=== PATIENT | female | born 1965 | race Caucasian/White ===

== ENCOUNTER 2018-05-28 18:56 | Emergency (ER) | payer BC ==
--- NOTE | 2018-05-28 20:13 | XRAY Report ---
Reason: Rolled ankle outward, increased px when standing Procedure Date: 05/28/2018 Accession Number: [id number] / [id number] Procedure: XR - Ankle 3 View RT CPT Code: FULL RESULT: EXAM: RIGHT ANKLE RADIOGRAPHY EXAM DATE: 05/28/2018 08:00 PM. CLINICAL HISTORY: Rolled ankle outward, increased px when standing. COMPARISON: None. TECHNIQUE: 3 views. FINDINGS: Bones: Tiny avulsion fragment inferior to the lateral malleolus. Joints: Normal. No effusion. No subluxations. The ankle mortise is normally aligned. Soft Tissues: Lateral greater than medial soft tissue swelling. IMPRESSION: Tiny ligamentous avulsion fracture fragment inferior to the lateral malleolus. RADIA
[2018-05-28 21:13] VITALS: BP 150/76
--- NOTE | 2018-05-28 22:17 | ED Physician Documentation ---
PD HPI LOWER EXT INJURY - Stated complaint Stated Complaint: ANKLE INJURY - Chief complaint Chief Complaint: Trauma Ext - History obtained from History obtained from: Patient - History of Present Illness PD HPI LOW EXT INJURY LOCATION: Right, Ankle Type of injury: Twist Where injury occurred: Other (store) Timing - onset: How many hours ago (several) Timing - duration: Hours Timing - details: Abrupt onset Pain level max: 5 Pain level now: 0 Improved by: Rest Worsened by: Moving Associated symptoms: No: Weakness, Numbness, Tingling, Swelling Similar symptoms before: Has not had sx before Recently seen: Not recently seen - Additional information Additional information: 53-year-old female with no past medical or surgical history here complaining of right ankle pain after accidentally twisting it because she was not paying attention when she was busy doing something. Review of Systems Ten Systems: 10 systems reviewed and negative Musculoskeletal: reports: Extremity pain. denies: Back pain, Extremity swelling, Pain with weight bearing Neurologic: denies: Focal weakness PD PAST MEDICAL HISTORY - Past Medical History Past Medical History: Yes Neuro: Migraines - Past Surgical History Past Surgical History: Yes HEENT: Tonsil/Adenoidectomy - Present Medications Home Medications: Ambulatory Orders Medication Instructions Recorded Confirmed Progesterone,Micronized 05/28/18 [Progesterone] - Allergies Allergies/Adverse Reactions: Allergies Allergy/AdvReac Type Severity Reaction Status Date / Time sulfamethoxazole Allergy Hives Verified 05/28/18 19:06 [From Bactrim] trimethoprim [From Bactrim] Allergy Hives Verified 05/28/18 19:06 - Social History Does the pt smoke?: No Smoking Status: Never smoker Does the pt drink ETOH?: Yes ETOH Use: Wine Does the pt have substance abuse?: Yes Substance Use and Type: Marijuana - Immunizations Immunizations are current?: Yes - POLST Patient has POLST: No PD ED PE NORMAL - Vitals Vital signs reviewed: Yes - General General: Alert and oriented X 3, No acute distress, Well developed/nourished - HEENT HEENT: Moist mucous membranes - Neck Neck: Supple, no meningeal sign, No bony TTP - Cardiac Cardiac: RRR, Strong equal pulses - Respiratory Respiratory: No respiratory distress - Back Back: No spinal TTP - Derm Derm: Warm and dry - Extremities Extremities: No deformity, No tenderness to palpate, Normal ROM s pain, No edema, No calf tenderness / cord - Neuro Neuro: Alert and oriented X 3, No motor deficit, No sensory deficit - Psych Psych: Normal mood, Normal affect Results - Vitals Vitals: Vital Signs - 24 hr 05/28/18 05/28/18 19:00 21:08 Temperature 36.5 C Heart Rate 71 81 Respiratory 16 16 Rate Blood Pressure 133/99 H 150/76 H O2 Saturation 97 99 Oxygen O2 Source Room air PD MEDICAL DECISION MAKING - ED course Complexity details: re-evaluated patient (1030Evaluated right posterior splint with stirrup: Patient denies any pain. Patient able to move her toes. Right foot capillary refill less than 2 seconds. Sensation intact. Splint properly in place. Crutches at the bedside for patient to use.), considered differential (Sprain, strain, dislocation, fracture), d/w patient (Patient informed of test results and agreed to splint and crutches.) Departure - Departure Disposition: 01 Home, Self Care Clinical Impression: Ankle injury Qualifiers: Encounter type: initial encounter Laterality: right Qualified Code(s): S99.911A - Unspecified injury of right ankle, initial encounter Condition: Stable Instructions: ED Fx Ankle Lateral Malleolus, ED Splint Care Fiberglass Comments: Follow-up with your primary doctor for referral to an orthopedic doctor. Nonweightbearing. Use your crutches. Elevate your right leg. OTC Tylenol or Motrin for pain. Keep the splint on until cleared by the orthopedic doctor.
== END 2018-05-28 22:42 | disposition home or self-care (01) ==
LOC: ED 18:56
DX: S99.911A Unspecified injury of right ankle, initial encounter (principal); X50.1XXA Overexertion from prolonged static or awkward postures, initial encounter; Y92.512 Supermarket, store or market as the place of occurrence of the external cause
CPT/HCPCS: 99283

== ENCOUNTER 2019-07-30 07:39 | Outpatient (CLI) | payer BC ==
[2019-07-30 10:23] LABS: BASOPHILS # (AUTO) 0.1 10^3/uL (0.0-0.1); BASOPHILS % (AUTO) 1.3 %; EOSINOPHILS # (AUTO) 0.1 10^3/uL (0.0-0.7); EOSINOPHILS % (AUTO) 1.6 %; HGB - HEMOGLOBIN 13.7 g/dL (12.0-16.0); LYMPHOCYTES # (AUTO) 2.2 10^3/uL (1.5-3.5); LYMPHOCYTES % (AUTO) 40.1 %; MEAN CORPUSCULAR HEMOGLOBIN 31.8 pg (27.0-31.0); MEAN CORPUSCULAR HGB CONC 32.2 g/dL (32.0-36.0); MEAN CORPUSCULAR VOLUME 98.6 fL (81.0-99.0); MEAN PLATELET VOLUME 9.8 fL (7.9-10.8); MONOCYTES # (AUTO) 0.6 10^3/uL (0.0-1.0); MONOCYTES % (AUTO) 11.7 %; NEUTROPHILS # (AUTO) 2.5 10^3/uL (1.5-6.6); NEUTROPHILS % (AUTO) 45.1 %; PLT - PLATELET COUNT 256 10^3/uL (130-450); RED BLOOD COUNT 4.31 10^6/uL (4.20-5.40); RED CELL DISTRIBUTION WIDTH 12.4 % (12.0-15.0); WHITE BLOOD COUNT 5.5 x10^3/uL (4.8-10.8)
[2019-07-30 10:32] LABS: ALBUMIN 4.2 g/dL (3.2-5.5); ALBUMIN/GLOBULIN RATIO 1.4 (1.0-2.2); ALKALINE PHOSPHATASE 55 IU/L (42-121); ALT ALANINE AMINOTRANSFERASE 31 IU/L (10-60); AST ASPARTATE AMINOTRANSFERASE 27 IU/L (10-42); BILIRUBIN,TOTAL 0.9 mg/dL (0.2-1.0); BUN - BLOOD UREA NITROGEN 11 mg/dL (6-20); CALCIUM 8.6 mg/dL (8.5-10.3); CARBON DIOXIDE - CO2 26 mmol/L (21-32); CHLORIDE 103 mmol/L (101-111); CHOL/HDL RATIO 2.5 (<4.4); CHOLESTEROL 242 mg/dL; CREATININE 0.6 mg/dL (0.4-1.0); GFR - MDRD 104 (>89); GLUCOSE 89 mg/dL (70-100); HDL CHOLESTEROL 95 mg/dL; LDL CHOLESTEROL,CALCULATED 134 mg/dL; LDL/HDL RATIO 1.4 (<4.4); SODIUM 137 mmol/L (135-145); TOTAL PROTEIN 7.1 g/dL (6.7-8.2); VLDL CHOLESTEROL 13 mg/dL
[2019-07-30 10:44] LABS: THYROID STIMULATING HORMONE 2.85 uIU/mL (0.34-5.60)
[2019-07-30 10:45] LABS: FREE T4 (FREE THYROXINE) 0.83 ng/dL (0.58-1.64)
[2019-07-30 10:47] LABS: CRP HIGH SENSITIVITY < 0.5 mg/L
[2019-07-30 10:49] LABS: TOTAL T3 0.94 ng/mL (0.87-1.78)
[2019-07-30 10:50] LABS: FERRITIN 83.5 ng/mL (11.0-306.8)
[2019-07-31 09:58] LABS: HOMOCYSTEINE 6.6 umol/L (<10.4)
== END 2019-07-30 07:40 | disposition home or self-care (01) ==
LOC: LAB.S 07:39
PROVIDERS: ATTEND Naturopath
DX: Z00.01 Encounter for general adult medical examination with abnormal findings (principal); R53.83 Other fatigue; E55.9 Vitamin D deficiency, unspecified; R00.2 Palpitations
CPT/HCPCS: 36415; 80053; 80061; 82306; 82626; 82728; 83090; 83721; 84439; 84443; 84480; 84481; 84482; 85025; 86141

== ENCOUNTER 2021-08-08 13:51 | Outpatient (CLI) | payer BC ==
--- NOTE | 2021-08-08 14:54 | XRAY Report ---
PROCEDURE: Finger(s) BILAT INDICATIONS: BILATERAL THUMB PAIN TECHNIQUE: AP hand, 4 views of the bilateral first finger(s) acquired. COMPARISON: None FINDINGS: Bones: Well-corticated jugular bony fragment adjacent to dorsal aspect of left first interphalangeal joint is seen suggestive of old healed avulsion injury. No acute fracture or dislocation. Mild osteoa rthritic changes are noted in bilateral first CMC joints, MCP joints and interphalangeal joints. No s uspicious bony lesions. Soft tissues: No suspicious soft tissue calcifications. 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 No acute fracture or dislocation. Suggestion of old avulsion injury involving dorsal aspect of left first interphalangeal joint. Reviewed by: Roel Hernandez MD on 08/08/2021 2:53 PM PST Approved by: Roel Hernandez MD on 08/08/2021 2:53 PM PST Station ID: [id number]
== END 2021-08-08 13:52 | disposition home or self-care (01) ==
LOC: DI.S 13:51
PROVIDERS: ATTEND Naturopath
DX: M18.0 Bilateral primary osteoarthritis of first carpometacarpal joints (principal)

== ENCOUNTER 2022-06-18 20:33 | Emergency (ER) | payer BC ==
[2022-06-18 20:42] VITALS: BP 163/107
--- NOTE | 2022-06-18 22:59 | ED Physician Documentation ---
PD HPI UPPER EXT INJURY - Stated complaint Stated Complaint: DOG BITE/BOTH HANDS - Chief complaint Chief Complaint: Laceration - History obtained from History obtained from: Patient - History of Present Illness Location: Both Type of injury: Laceration Where injury occurred: Home Timing - onset: Enter time (20:00), Today Timing - details: Abrupt onset Associated symptoms: No: Weakness, Numbness - Additonal information Additional information: patient broke up a fight between her dog and cat tonight at approximately 8 PM, sustaining multiple lacerations to BUE in the process. Cannot recall last received tetanus booster. Patient is right hand dominant. Review of Systems Skin: reports: Abrasion (s), Bite / sting Musculoskeletal: reports: Extremity pain Neurologic: denies: Focal weakness, Numbness PD PAST MEDICAL HISTORY - Past Medical History Neuro: Migraines - Past Surgical History Past Surgical History: Yes HEENT: Tonsil/Adenoidectomy - Present Medications Home Medications: Ambulatory Orders Medication Instructions Recorded Confirmed Progesterone, Micronized 100 mg PO DAILY 05/28/18 [Progesterone] Amox/Clav 875/125 [Augmentin 1 tablet PO Q12H 5 Days #10 tablet 06/18/22 875/125 Tab] - Allergies Allergies/Adverse Reactions: Allergies Allergy/AdvReac Type Severity Reaction Status Date / Time sulfamethoxazole Allergy Hives Verified 06/18/22 20:42 [From Bactrim] trimethoprim [From Bactrim] Allergy Hives Verified 06/18/22 20:42 - Social History Does the pt smoke?: No Smoking Status: Never smoker Does the pt drink ETOH?: Yes Does the pt have substance abuse?: Yes - Immunizations Immunizations are current?: Yes - POLST Patient has POLST: No PD ED PE NORMAL - Vitals Vital signs reviewed: Yes - Extremities Extremities: Other (multiple superficial abrasions to both hands, wrists. superficial puncture wound to left second finger over PIP joint, extensor surface with mild echymosis but FROM ) - Neuro Neuro: No motor deficit, No sensory deficit Results - Vitals Vitals: Oxygen O2 Source Room air PD MEDICAL DECISION MAKING - ED course Complexity details: considered differential, d/w patient ED course: multiple superficial abrasions to BUE and solitary superficial puncture wound to left second finger. No injury that would benefit from repair (suture, glue, tape). Patient does know tetanus status and thus given dTAP booster in ED, and given Augmentin in ED with 5 day rx for Augmentin as wound prophylaxis Departure - Departure Disposition: 01 Home, Self Care Clinical Impression: Dog bite of multiple sites of hand and fingers Condition: Good Instructions: ED Bite Dog Prescriptions: Amox/Clav 875/125 [Augmentin 875/125 Tab] 1 tablet PO Q12H 5 Days #10 tablet Comments: There are no areas of injury that need repair (stitches). There are a few areas that appear to be superficial punctures, which are at risk of infection from an animal bite, particularly over the hands, and thus an antibiotic (augmentin) has been given in the ER and a prescription has been electronically submitted to [facility] in [place]. Clean the wounds twice per day with soap and water, then apply an antibiotic ointment such as bacitracin to the wounds Discharge Date/Time: 06/18/22 23:35
[2022-06-18] MEDS ORDERED: AMOX/CLAV 875 MG/125 MG TABLET PO STA (23:14)
[2022-06-18] MEDS ORDERED: TETANUS/DIPHTHERIA/PERTUSSIS 0.5 ML SYRINGE IM ONE (23:14)
== END 2022-06-18 23:35 | disposition home or self-care (01) ==
LOC: ED 20:33
DX: S61.412A Laceration without foreign body of left hand, initial encounter (principal); S61.411A Laceration without foreign body of right hand, initial encounter; W54.0XXA Bitten by dog, initial encounter; Z23 Encounter for immunization; Z71.85 Encounter for immunization safety counseling
CPT/HCPCS: 90471; 90715; 99282; 99283; A9270

== ENCOUNTER 2022-10-02 14:20 | Outpatient (CLI) | payer BC ==
--- NOTE | 2022-10-02 14:59 | XRAY Report ---
PROCEDURE: Chest 2 View X-Ray INDICATIONS: LEFT LOBE PNEUMONIA TECHNIQUE: 2 views of the chest were acquired. COMPARISON: None. FINDINGS: Surgical changes and devices: None. Lungs and pleura: No pleural effusions or pneumothorax. Bilateral pulmonary infiltrates consistent w ith pneumonia. Mediastinum: Mediastinal contours are normal. Heart size is normal. Bones and chest wall: No suspicious bony abnormalities. Soft tissues appear unremarkable. IMPRESSION: Bilateral pneumonia. Recommend return follow-up chest x-ray to ensure resolution. If pulmonary opacit ies do not resolve after adequate treatment, consider chest CT for further evaluation. Reviewed by: Christ Guidry MD on 10/02/2022 2:57 PM PDT Approved by: Christ Guidry MD on 10/02/2022 2:57 PM PDT Station ID: [id number]
--- NOTE | 2022-10-02 15:02 | XRAY Report ---
PROCEDURE: Ribs w/PA Chest LT INDICATIONS: XRAY LABS TECHNIQUE: 2 views of the left ribs were acquired, along with a single view chest. COMPARISON: Chest x-ray, 10/02/2022 FINDINGS: Surgical changes and devices: None. Bones and chest wall: No fractures or dislocations. No suspicious bony lesions. Overlying soft tis sues appear unremarkable. Lungs and pleura: Bilaterally nodular pulmonary opacities are present. Small protrusions are present bilaterally. No pleural effusions or pneumothorax. Lungs appear clear. Mediastinum: Mediastinal contours appear normal. Heart size is normal. IMPRESSION: 1. No displaced rib fractures. 2. Bilateral pulmonary opacities compatible with pneumonia. 3. Small pleural effusions bilaterally. Reviewed by: Christ Guidry MD on 10/02/2022 3:00 PM PDT Approved by: Christ Guidry MD on 10/02/2022 3:00 PM PDT Station ID: [id number]
[2022-10-02 19:58] LABS: BASOPHILS # (AUTO) 0.1 10^3/uL (0.0-0.1); BASOPHILS % (AUTO) 0.8 %; EOSINOPHILS # (AUTO) 0.2 10^3/uL (0.0-0.7); EOSINOPHILS % (AUTO) 1.4 %; HCT - HEMATOCRIT 37.4 % (37.0-47.0); LYMPHOCYTES # (AUTO) 1.8 10^3/uL (1.5-3.5); LYMPHOCYTES % (AUTO) 16.1 %; MEAN CORPUSCULAR HEMOGLOBIN 32.1 pg (27.0-31.0); MEAN CORPUSCULAR HGB CONC 32.1 g/dL (32.0-36.0); MEAN PLATELET VOLUME 9.6 fL (7.9-10.8); MONOCYTES # (AUTO) 1.4 10^3/uL (0.0-1.0); MONOCYTES % (AUTO) 12.4 %; NEUTROPHILS # (AUTO) 7.9 10^3/uL (1.5-6.6); NEUTROPHILS % (AUTO) 68.9 %; PLT - PLATELET COUNT 391 10^3/uL (130-450); RED BLOOD COUNT 3.74 10^6/uL (4.20-5.40); RED CELL DISTRIBUTION WIDTH 12.9 % (12.0-15.0); WHITE BLOOD COUNT 11.5 x10^3/uL (4.8-10.8)
[2022-10-02 20:48] LABS: CREATININE 0.5 mg/dL (0.4-1.0); POTASSIUM 4.5 mmol/L (3.5-5.0)
[2022-10-02 20:49] LABS: ALBUMIN 3.1 g/dL (3.2-5.5); ALBUMIN/GLOBULIN RATIO 0.7 (1.0-2.2); BILIRUBIN,TOTAL 0.5 mg/dL (0.2-1.0); CALCIUM 8.8 mg/dL (8.5-10.3); CRP - C-REACTIVE PROTEIN 25.4 mg/dL (0-1.0); TOTAL PROTEIN 7.5 g/dL (6.7-8.2)
== END 2022-10-02 14:21 | disposition home or self-care (01) ==
LOC: DI.S 14:20
PROVIDERS: ATTEND Naturopath
DX: J18.9 Pneumonia, unspecified organism (principal); J90 Pleural effusion, not elsewhere classified
CPT/HCPCS: 36415; 80053; 85025; 86140